=== PATIENT | female | born 1995 | race Caucasian/White ===

== ENCOUNTER 2018-11-24 21:09 | Outpatient (CLI) | payer OTHER ==
[~2018-11-24] VITALS: Ht 162.6 cm; Wt 71.6 kg
[2018-11-24 21:02] VITALS: Ht 162.6 cm; Wt 71.6 kg
[2018-11-24] MEDS ORDERED: CALC600T5 PO (21:18)
[2018-11-24] MEDS ORDERED: FER325 PO (21:18)
[2018-11-24] MEDS ORDERED: PREN-93 PO (21:18)
[2018-11-24 21:21] VITALS: BP 138/81; PULSE 89; RESP 18
--- NOTE | 2018-11-25 01:11 | PN ---
Triage Information Date/Time Reason for visit: SROM Weeks of Gestation 38 weeks and 6 days /Para Diabetes: none Hypertention: none Objective Vital Signs Date Temp Pulse Resp B/P (MAP) Pulse Ox O2 O2 Flow FiO2 Time Delivery Rate 11/24/18 98.1 89 18 138/81 Room Air 21:21 (100) Heart Rate: 130's Heart Rate Comments Reactive Exam Cervix 1 cm Sterile speculum exam negative Results/Medications Imaging Results ANASTASIA 8.5 Disposition: Discharge Assessment/Plan Follow up on 11/26/2018. ARMANDO DILLARD MD November 25, 2018 01:11
--- NOTE | 2018-11-25 01:22 | TRIAGE ---
OB Triage Datetime Report Generated by CPN: 11/25/2018 01:22 Datetime: 11/25/2018 01:03 Monitor Mode: External (Annotations: removed) Monitor Mode: External US (Annotations: removed) Datetime: 11/25/2018 00:55 Labor Evaluation Frequency: x5 Monitor Mode: External Duration (sec)2399: 40-70 Pattern: Normal: <= 5 Contractions in 10 Minutes Heart Rate FHR Baseline Rate: 135 Monitor Mode: External US Variability: Moderate 6-25 bpm Accelerations: 15X15 Decelerations: None Category: Category I Datetime: 11/25/2018 00:46 Quality: Mild (Annotations: by palpation) Resting Tone [place]: Relaxed Datetime: 11/25/2018 00:45 Vaginal Exam Dilatation (cms): 1.5 Effacement (%): 30 Station: -3 Exam By: Chloe Peoples RN Membrane Status: Intact Vaginal Bleeding: None Cervix, Consistency: Firm Cervix, Position: Posterior Datetime: 11/25/2018 00:26 Stage of : OB Triage Temperature Route: Oral Datetime: 11/25/2018 00:25 Monitor Mode: External (Annotations: reapplied) Quality: Mild (Annotations: by palpation) Resting Tone [place]: Relaxed Monitor Mode: External US (Annotations: reapplied) Comments: Patient states she feels active movement. Pain Assessment Pain Scale: 6 Pain Presence: Intermittent Pain Type: Cramping Pain Location: Abdomen Pain Relief Measures: Comfort Measures Datetime: 11/24/2018 22:40 Labor Evaluation Frequency: 2-5 Monitor Mode: External (Annotations: removed) Duration (sec)2399: 60-110 Pattern: Normal: <= 5 Contractions in 10 Minutes Heart Rate FHR Baseline Rate: 135 Monitor Mode: External US (Annotations: removed) Variability: Moderate 6-25 bpm Accelerations: 15X15 Decelerations: None Category: Category I Comments: Frequent loss of contact due to active movement Datetime: 11/24/2018 21:55 Quality: Mild Resting Tone [place]: Relaxed Datetime: 11/24/2018 21:45 Labor Evaluation Frequency: 2-7 Monitor Mode: External Pattern: Normal: <= 5 Contractions in 10 Minutes Heart Rate FHR Baseline Rate: 140 Monitor Mode: External US Variability: Moderate 6-25 bpm Accelerations: 15X15 Decelerations: None Category: Category I Datetime: 11/24/2018 21:33 Vaginal Exam Dilatation (cms): 1.5 Effacement (%): 30 Station: -3 Exam By: Chloe Peoples RN Vaginal Bleeding: None Pool: Negative Nitrazine: Negative Cervix, Consistency: Firm Cervix, Position: Posterior Datetime: 11/24/2018 21:24 EGA: 38.5 Datetime: 11/24/2018 21:21 Stage of : OB Triage Assessment Type: Triage Maternal Assessment Level of Consciousness: Fully Conscious DTR's/Clonus: DTRs 2+; No Clonus Headache: Denies Blurred Vision: No Respiratory Effort: Unlabored; Regular Rhythm; Equal Expansion Breath Sounds, Left: Clear and Equal Breath Sounds, Right: Clear and Equal Nausea/Vomiting: Denies RUQ Epigastric Pain: Denies Lower Extremities Edema: None Degree: None Upper Extremities Edema: None Degree: None Facial Edema: None Temperature Route: Oral Fall Risk Assessment History of Falling: (0) No Secondary Diagnosis: (0) No Ambulatory Aid: (0) Bedrest/Nurse Assist IV Therapy: (0) No Gait: (0) Normal/Bedrest/Immobile Mental Status: (0) Oriented to Own Ability Fall Score: 0 Fall Risk Score Definition: No Risk: No action required Comments: Patient states she feels active movement. Pain Assessment Pain Scale: 5 Pain Presence: Intermittent Pain Type: Cramping; Pressure Pain Location: Abdomen Pain Relief Measures: Comfort Measures Datetime: 11/24/2018 21:20 Monitor Mode: External (Annotations: applied) Quality: Mild Resting Tone [place]: Relaxed Monitor Mode: External US (Annotations: applied) Datetime: 11/24/2018 21:02 Time of Arrival: 11/24/2018 21:02 Arrived By: Ambulatory Arrived From: Home Chief Complaint: Leaking since 11/24/18 at 1830, Abdominal cramping since 11/24/18 at 1930 Movement: Present Contractions: Irregular Time Contractions Began: 11/24/2018 19:30 Contractions: Q10min per patient Rupture of Membranes: Unsure Vaginal Bleeding: None Vaginal Discharge: Denies Recent Sexual Intercouse: Yes Abdominal Trauma: Not Applicable Patient Complaints: Cramping Time Provider Notified: 11/24/2018 21:48 Provider Notified: Dr. Poole Initial Plan: EFM x2, SVE, Speculum exam, nitrazine test
== END 2018-11-25 01:20 | disposition home or self-care (01) ==
LOC: OBT 21:09 → L-D 21:09 → OBT 11-25 01:20
PROVIDERS: ATTEND Obstetrics & Gynecology
DX: O42.913 Preterm premature rupture of membranes, unspecified as to length of time between rupture and onset of labor, third trimester (principal); Z3A.38 38 weeks gestation of pregnancy
CPT/HCPCS: 76815; Z7500; G0463

== ENCOUNTER 2018-11-26 11:10 | Inpatient (IN) | payer OTHER ==
[~2018-11-26] VITALS: Ht 162.6 cm; Wt 71.7 kg
[~2018-11-26 11:10] MED LIST: CALC600T5 PO; FER325 PO; PREN-93 PO
[2018-11-26 11:39] VITALS: BP 135/75; PULSE 80; RESP 18; Ht 162.6 cm; Wt 71.7 kg
[2018-11-26] MEDS ORDERED: MISOPROSTOL 200 MCG TAB PR PRN (13:30)
[2018-11-26] MEDS ORDERED: LIDOCAINE 1% (MPF) 30 ML INJ INJ PRN (13:30)
[2018-11-26] MEDS ORDERED: CARBOPROST 250 MCG INJ IM PRN (13:30)
[2018-11-26] MEDS ORDERED: OXYTOCIN 30 UNITS/LR 500 ML IV SCH ×2 (13:30)
[2018-11-26] MEDS ORDERED: METHYLERGONOVINE 0.2 MG INJ IM PRN (13:30)
[2018-11-26] MEDS ORDERED: OXYTOCIN 30 UNITS/LR 500 ML IV PRN (13:30)
[2018-11-26] MEDS ORDERED: BUTORPHANOL 2 MG INJ IV PRN ×2 (13:30)
[2018-11-26] MEDS: LACTATED RINGER'S 1,000 ML IV SCH ×2 (15:46→21:11)
[2018-11-26] MEDS: MISOPROSTOL 50 MCG CAPSULE PO SCH ×3 (17:00→21:22)
[2018-11-27] MEDS: MISOPROSTOL 50 MCG CAPSULE PO SCH ×4 (01:00→13:00)
--- NOTE | 2018-11-27 05:10 | PREAC ---
Date/Time of Note Date/Time of Note DATE: 11/27/18 TIME: 05:10 Anesthesia Eval and Record Evaluation Time Pre-Procedure Interview DATE: 11/27/18 TIME: 05:10 Age 22 Sex female NPO: 8 hrs Preoperative diagnosis Planned procedure labor epidural Past Medical History Past Medical History: None Surgery & Anesthesia Issues No known issue Meds Anticoagulation: No Beta Storm within 24 hr: No Reason Beta Storm not given: Pt. not on B-Storm Reported Medications Ferrous Sulfate* (Ferrous Sulfate*) 325 Mg Tabec, 325 MG PO DAILY, TAB 11/24/18 Calcium Carbonate (CALCIUM) 600 Mg Tablet, 600 MG PO, TAB 11/24/18 Vit No.124/Iron/FA ( Vitamin Tablet) 1 Each Tablet, 1 EACH PO, TAB 11/24/18 Current Medications Lactated Ringer's 1,000 ml @ 125 mls/hr Q8H IV Last administered on 11/26/18at 15:46; Admin Dose 125 MLS/HR; Start 11/26/18 at 13:11 Butorphanol Tartrate (Stadol) 1 mg Q2H PRN IV .PAIN SCALE 1-5; Start 11/26/18 at 13:30 Butorphanol Tartrate (Stadol) 2 mg Q2H PRN IV .PAIN SCALE 6-10 Last administered on 11/27/18at 02:52; Admin Dose 2 MG; Start 11/26/18 at 13:30 Lidocaine (Xylocaine 1% (Mpf)) 30 ml ONCE PRN INJ .EPISIOTOMY; Start 11/26/18 at 13:30 Oxytocin/Lactated Ringer's 500 ml @ 500 mls/hr ONCE POST IV ; Start 11/26/18 at 13:30 Oxytocin/Lactated Ringer's 500 ml @ 125 mls/hr POST IV ; Start 11/26/18 at 13:30 Oxytocin/Lactated Ringer's 500 ml @ 0 mls/hr ONCE PRN IV .VAGINAL BLEEDING; Start 11/26/18 at 13:30 Methylergonovine Maleate (Methergine) 0.2 mg ONCE PRN IM .VAGINAL BLEEDING; Start 11/26/18 at 13:30 Carboprost Tromethamine (Hemabate) 250 mcg ONCE PRN IM .VAGINAL BLEEDING; Start 11/26/18 at 13:30 Misoprostol (Cytotec) 1,000 mcg ONCE PRN [place] .VAGINAL BLEEDING; Start 11/26/18 at 13:30 Oxytocin/Lactated Ringer's 500 ml @ 0 mls/hr FOR INDUCTION IV ; Start 11/26/18 at 13:30 Misoprostol (Cytotec 50 Mcg Capsule) 50 mcg Q4 PO Last administered on 11/26/18at 21:22; Admin Dose 50 MCG; Start 11/26/18 at 16:30 Meds reviewed: Yes Allergies Coded Allergies: No Known Allergy (Unverified , 11/24/18) Allergies Reviewed: Yes Labs/Studies Labs Reviewed: Reviewed by anesthesiologist Result Diagram: 11/26/18 1406 Laboratory Tests 11/26/18 14:06 Blood Bank Test 11/26/18 14:07 Antibody Screen NEGATIVE Blood Type A POSITIVE Rh Immune Globulin Candidate NO test: Positive Pre-procedure Exam Last vitals Vital Signs Date Temp Pulse Resp B/P (MAP) Pulse Ox O2 O2 Flow FiO2 Time Delivery Rate 11/26/18 97.5 80 18 135/75 11:39 (95) Airway: Adequate mouth opening, Adequate thyromental dist Mallampati: Mallampati II Teeth: Normal Lung: Normal Heart: Normal ASA Physical Status ASA physical status: 1 Emergency: None Planned Anesthetic Neuraxial: Epidural Pre-operative Attestations Prior to commencing anesthesia and surgery, the patient was re-evaluated, there was verification of: *The patient's identity *The results of appropriate recent lab work and preoperative vital signs *The above evaluation not changing prior to induction *Anesthetic plan, risk benefits, alternative and complications discussed with patient/family; questions answered; patient/family understands, accepts and wishes to proceed. TERRY CACERES November 27, 2018 05:10
[2018-11-27] MEDS: LACTATED RINGER'S 1,000 ML IV SCH ×3 (05:11→21:11)
[2018-11-27] MEDS ORDERED: FENTAnyl 2MCG/ML-ROPIV 0.2% 100 ML BAG EPI SCH (05:30)
[2018-11-27] MEDS ORDERED: ONDANSETRON 4 MG INJ IV PRN (05:30)
[2018-11-27] MEDS ORDERED: NALOXONE (0.4 MG/ML) INJ IV PRN (05:30)
[2018-11-27] MEDS ORDERED: DIPHENHYDRAMINE 50 MG INJ IV PRN (05:30)
[2018-11-27] MEDS ORDERED: HYDROmorphONE 0.5 MG/0.5 ML SYG IV PRN ×2 (05:30)
[2018-11-27] MEDS ORDERED: KETOROLAC 30 MG INJ IV PRN (05:30)
--- NOTE | 2018-11-27 06:03 | PAC ---
Date/Time of Note Date/Time of Note DATE: 11/27/18 TIME: 06:03 Post-Anesthesia Notes Post-Anesthesia Note Last documented vital signs Vital Signs Date Temp Pulse Resp B/P (MAP) Pulse Ox O2 O2 Flow FiO2 Time Delivery Rate 11/26/18 97.5 80 18 135/75 11:39 (95) Activity: WNL Respiratory function: WNL Cardiovascular function: WNL Mental status: Baseline Pain reasonably controlled: Yes Hydration appropriate: Yes Nausea/Vomiting absent: Yes TERRY CACERES November 27, 2018 06:03
[2018-11-27] MEDS ORDERED: AMPICILLIN 2 GM/NS (PMX) 100 ML IVPB ONE (11:00)
[2018-11-27] MEDS ORDERED: AMPICILLIN 2 GM/NS (PMX) 100 ML ONE (11:08)
[2018-11-27] MEDS ORDERED: ACETAMINOPHEN 325 MG TAB PO PRN (13:20)
--- NOTE | 2018-11-27 14:12 | HP ---
Date/Time of Note Date/Time of Note DATE: 11/27/18 TIME: 14:08 OB - History Hx of Present Free Text/Dictation 22 y.0 at 39w here for f/u for low ANASTASIA which is 4.3 ANASTASIA on 11/24/18 was 8.5 GBS status neg admitted for IOL for low ANASTASIA Chief Complaint: low ANASTASIA Estimated Due Date: Dec 03, 2018 : 1 Para: 0 Spontaneous : 0 Therapeutic : 0 Care: Other Ultrasounds: Other Obstetrical Complications: None Medical Complications: None Past Family/Social History * Past Medical, Surgical, Family and Obstetric Histories reviewed from chart. Blood Type: A+ Rubella: immune RPR/VDRL: Negative GBS Status: Negative HBsAG: Negative OB Admission Exam Vital Signs Vital Signs Vital Signs Date Temp Pulse Resp B/P (MAP) Pulse Ox O2 O2 Flow FiO2 Time Delivery Rate 11/27/18 100.6 13:23 11/26/18 80 18 135/75 11:39 (95) Physical Exam HEENT: WNL Heart: Rhythm Normal Lungs: Clear, Equal Abdomen: WNL Extremities: Normal Reflexes: Normal Cervical Dilatation: other (1.5) Effacement: Other (30) Station: -3 Membranes: Intact Amniotic Fluid: Unevaluable Heart Rate: 140's Accelerations: Accelerations Present Decelerations: No Decelerations Varibility: Moderate Contractions on Admission: None Last 72 hours Lab Results CBC & BMP 11/26/18 14:06 OB Assessment/Plan Reason for admission: other (oligohydramnios) Other Assessment: IUP 39w Induction Method: per Misoprostol Protocol DARYA KEBEDE MD November 27, 2018 14:12
--- NOTE | 2018-11-27 14:18 | LDN ---
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 5oclock ligeted with 000ch gut Anesthesia type: Epidural Estimated blood loss: 100 Sponge & Needle done & correct: Yes All needle counts correct: Yes Any foreign bodies felt in the: No Infant Delivery Information Sex Infant Sex: female Apgars 1 Minute: 9 5 Minute: 9 Suctioning Nose & mouth suctioned at carlos: Yes Delee suction performed: Yes Umbilical Cord Umbilical cord with: 3 Vessels Cord presentations: no nuchal cord Cord Blood was obtained: Yes Mother & Baby Disposition Disposition maternal fever tachycardia on 2nd stage Mom & Baby to Maternity; Good: Yes Mom transferred to: Other Baby to NICU: No () DARYA KEBEDE MD November 27, 2018 14:18
[2018-11-27] MEDS: OXYTOCIN 30 UNITS/LR 500 ML IV SCH ×2 (14:24→17:21)
[2018-11-27] MEDS ORDERED: AMPICILLIN 1 GM/NS (PMX) 50 ML IVPB SCH (15:00)
[2018-11-27] MEDS ORDERED: ZOLPIDEM 5 MG TAB PO PRN (17:00)
[2018-11-27] MEDS ORDERED: CARBOPROST 250 MCG INJ IM PRN (17:00)
[2018-11-27] MEDS ORDERED: OXYCODONE/ASPIRIN (4.88/325) TAB PO PRN ×2 (17:00)
[2018-11-27] MEDS ORDERED: OXYTOCIN 30 UNITS/LR 500 ML IV PRN (17:00)
[2018-11-27] MEDS ORDERED: BENZOCAINE 20% 56 ML SPRAY TOP PRN (17:00)
[2018-11-27] MEDS ORDERED: METHYLERGONOVINE 0.2 MG INJ IM PRN (17:00)
[2018-11-27] MEDS ORDERED: MISOPROSTOL 200 MCG TAB PR PRN (17:00)
[2018-11-27] MEDS ORDERED: LANOLIN HPA 1 PKT TOP PRN (17:00)
[2018-11-27] MEDS ORDERED: WITCH HAZEL/GLYCERIN PAD PR PRN (17:00)
[2018-11-27] MEDS: IBUPROFEN 600 MG TAB PO SCH ×2 (17:20→23:48)
[2018-11-27 20:00] VITALS: BP 125/58; PULSE 84; RESP 17
[2018-11-27] MEDS: SENNA/DOCUSATE NA (8.6MG/50MG) TAB PO SCH (20:48)
[2018-11-28 00:30] VITALS: BP 124/74; PULSE 67; RESP 19
[2018-11-28 03:30] VITALS: BP 123/55; PULSE 83; RESP 18
[2018-11-28] MEDS: LACTATED RINGER'S 1,000 ML IV SCH (05:11)
[2018-11-28] MEDS: IBUPROFEN 600 MG TAB PO SCH ×4 (05:52→17:15)
[2018-11-28] MEDS: SENNA/DOCUSATE NA (8.6MG/50MG) TAB PO SCH ×2 (08:39→21:05)
[2018-11-28 08:45] VITALS: BP 107/68; PULSE 83; RESP 18
[2018-11-28 15:54] VITALS: BP 120/71; PULSE 83; RESP 18
[2018-11-28 19:10] VITALS: BP 115/69; PULSE 62; RESP 18
--- NOTE | 2018-11-28 19:48 | PD.PPDC ---
ADDICTION MEDICINE PHYSICIAN Discharge Instruction Diagnosis [id number] Final Diagnosis: Toamy2l s/p Condition [id number] Patient Condition: Lwyou0i Stable Diet Cvlbm1Va Diet: Lraet6t Resume Regular Diet Activity/Restrictions [id number] Activity: Fftsm1h May Shower Fiubi0Ix Restrictions: Mvqpq3a No Lifting No Sexual Activity Nothing in the Vagina No [place] No Tampons, douche Follow-up Follow-up with Physician: 2, Week/Weeks Return to clinic for Hyyie9Vv AIX SYSTEM ADMINISTRATOR Instructions: Eombo5x Fever greater than 101 Chills Worsening abdominal pain Excessive Vaginal Bleeding More than 2 pads per hour Unable to tolerate diet [id number] OB Instructions: Fgciy8l Breast Tenderness Depression Blurried Vision Headache DARYA KEBEDE MD Nov 28, 2018 19:48
--- NOTE | 2018-11-28 19:58 | DS ---
Date/Time of Note Date/Time of Note DATE: 11/28/18 TIME: 19:56 Obstetrical Discharge Record Final Diagnosis Final Diagnosis: Term delivered Vaginal Delivery Obstetrical Delivery: Spontaneous Complications Other (oligohydroamnios) Induction: Yes Rupture of Membranes: No Condition on Discharge Physical Assessment Last Vitals: vss afebrile Voiding: Yes Bowel Movement: Yes Breast: Soft, non-tender Fundus: Firm Calf Tenderness: No Patient Condition: Stable DARYA KEBEDE MD Nov 28, 2018 19:58
[2018-11-29] MEDS: IBUPROFEN 600 MG TAB PO SCH ×3 (00:38→12:41)
[2018-11-29 04:00] VITALS: BP 121/72; PULSE 76; RESP 18
[2018-11-29 08:00] VITALS: BP 124/80; PULSE 75; RESP 19
[2018-11-29] MEDS ORDERED: DIPHTH/TET/ACEL PERTUSS (ADULT) 0.5 ML VIAL IM* ONE (09:00)
[2018-11-29] MEDS: SENNA/DOCUSATE NA (8.6MG/50MG) TAB PO SCH (09:44)
--- NOTE | 2018-11-30 16:32 | DELSUM ---
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 TACHYCARDIA, MATERNAL TEMPERATURE LABOR SUMMARY EDC: 12/03/2018 00:00 No. Babies in Womb: 1 Attempted: No Labor Anesthesia: None LABOR INFORMATION Reason for Induction: Oligohydramnios Onset of Labor: 11/27/2018 01:34 Complete Dilatation: 11/27/2018 10:46 Cervical Ripening Agents: Cytotec @ Oxytocin: N/A Group B Beta Strep: Negative Antibiotics # of Doses: 1 Antibiotics Time of Last Dose: 11/27/2018 11:09 Steroids Given: None Reason Steroids Not Administered: Not Applicable MEMBRANES Membranes Rupture Method: Spontaneous Rupture of Membranes: 11/27/2018 01:34 Length of Rupture (hr): 12.23 Amniotic Fluid Color: Light Meconium Amniotic Fluid Amount: Small Amniotic Fluid Odor: None STAGES OF LABOR Stage 1 hr: 9 Stage 1 min: 12 Stage 2 hr: 3 Stage 2 min: 2 Stage 3 hr: 0 Stage 3 min: 4 Total Time in Labor hr: 12 Total Time in Labor min: 18 VAGINAL DELIVERY Episiotomy: None Laceration Extension: N/A Laceration Type: None Laceration Repair: Not Applicable Initial Vag Sponge Count: 10 Final Vag Sponge Count: 10 Initial Vag Sharps Count: 1 Final Vag Sharps Count: 1 Sponge Count Correct: Yes; Vaginal Sweep Performed Sharps Count Correct: Yes BABY A INFORMATION Infant Delivery Date/Time: 11/27/2018 13:48 Method of Delivery: Vaginal Born in Route : No : N/A Forceps: N/A Vacuum Extraction: N/A Shoulder Dystocia : N/A SHOULDER DYSTOCIA BABY A Infant Delivery Date/Time: 11/27/2018 13:48 PRESENTATION/POSITION BABY A Presentation: Cephalic Cephalic Presentation: Vertex Vertex Position: Left Occipital Anterior Breech Presentation: N/A PLACENTA INFORMATION BABY A Placenta Delivery Time : 11/27/2018 13:52 Placenta Method of Delivery: Spontaneous Placenta Status: Delivered SCORES BABY A Heart Rate 1 min: >100 bpm Resp Effort 1 min: Good Cry Reflex Irritability 1 min: Cough/Sneeze/Pulls Away Muscle Tone 1 min: Active Motion Color 1 min: Blue/Pale Resuscitation Effort 1 min: Tactile Stimulation SCORE 1 MIN: 8 Heart Rate 5 min: >100 bpm Resp Effort 5 min: Good Cry Reflex Irritability 5 min: Cough/Sneeze/Pulls Away Muscle Tone 5 min: Active Motion Color 5 min: Body [place], Extremit Blue Resuscitation Effort 5 min: Tactile Stimulation SCORE 5 MIN: 9 INFANT INFORMATION BABY A Gestational Age at Delivery: 39.1 Gestational Status: Full Term- 39- 40.6 Weeks Outcome : Liveborn Condition : Stable Sex: Female IDENTIFICATION/MEDS BABY A ID Band Number: [id number] ID Band Location: Right Leg; Left Arm Sensor Applied: Yes Sensor Number: [id number] Sensor Location : Cord Clamp Vitamin K Given : Not Given Erythromycin Given: Not Given WEIGHT/LENGTH BABY A Infant Birthweight (gm): 2735 Weight (lb): 6 Infant Weight (oz): 0 Length (in): 19.50 Infant Length (cm): 49.53 CORD INFORMATION BABY A No. Cord Vessels: 3 Nuchal Cord : N/A Cord Blood Taken: Yes Suction: Mouth; Nose ASSESSMENT BABY A Infant Complications: Extended Tachycardi; Multiple Variable Decels; Meconium; Oligohydramnios Physical Findings at Delivery: Within Normal Limits Respirations: Appears Normal Ice Maker/ALS Called : Yes Infant Care By: NICU Transferred To: Remains with Mother
== END 2018-11-29 16:30 | disposition home or self-care (01) | DRG 768 ==
LOC: OBT 11:10 → L-D 11:12 → OBT 13:30 → L-D 13:49 → PP1 11-27 16:08
PROVIDERS: ADMIT Obstetrics & Gynecology; ATTEND Obstetrics & Gynecology
PROC: 10E0XZZ Delivery of Products of Conception, External Approach (ICD-10-PCS; principal; 2018-11-27)
PROC: 0W3R7ZZ Control Bleeding in Genitourinary Tract, Via Natural or Artificial Opening (ICD-10-PCS; 2018-11-27)
DX: O41.03X0 Oligohydramnios, third trimester, not applicable or unspecified (principal); Z37.0 Single live birth; O71.7 Obstetric hematoma of pelvis; O75.2 Pyrexia during labor, not elsewhere classified; O77.0 Labor and delivery complicated by meconium in amniotic fluid; O76 Abnormality in fetal heart rate and rhythm complicating labor and delivery; Z3A.39 39 weeks gestation of pregnancy
CPT/HCPCS: 62322; 76815; 76818; 85025; 85610; 85730; 86592; 86850; 86900; 86901; 87340; 99464; G0463; J0290; J0595; J2590; J3010; J7120